=== PATIENT | female | born 1955 | race Caucasian/White ===

== ENCOUNTER 2018-02-14 21:34 | Inpatient (IN) | payer MEDICARE, OTHER, SELFPAY ==
[~2018-02-14] VITALS: Ht 167.6 cm; Wt 127.0 kg
[2018-02-14] MEDS ORDERED: METHOCARBAMOL 750 MG TABLET ONE (22:25)
[2018-02-14 22:30] LABS: BASOPHILS # (AUTO) 0.02 x10^3/uL (0-0.1); BASOPHILS % (AUTO) 0 % (0-1); EOSINOPHILS # (AUTO) 0.37 x10^3/uL (0-0.4); EOSINOPHILS % (AUTO) 5 % (1-7); LYMPHOCYTES # (AUTO) 1.03 x10^3/uL (1-3.4); LYMPHOCYTES % (AUTO) 13 % (22-44); MD NO; MEAN CORPUSCULAR HEMOGLOBIN 31.9 pg (27.0-34.8); MEAN CORPUSCULAR HGB CONC 33.9 g/dL (32.4-35.8); MEAN CORPUSCULAR VOLUME 94.2 fL (80-100); MEAN PLATELET VOLUME 8.2 fL (7.4-10.4); MONOCYTES # (AUTO) 0.44 x10^3/uL (0.2-0.8); MONOCYTES % (AUTO) 6 % (2-9); NEUTROPHILS # (AUTO) 5.95 x10^3/uL (1.8-6.8); NEUTROPHILS % (AUTO) 76 % (42-75); PLATELET COUNT 246 x10^3/uL (130-400); RED BLOOD COUNT 3.55 x10^6/uL (3.82-5.3)
[2018-02-14] MEDS ORDERED: SODIUM CHLORIDE FLUSH 10ML SYR IVF ONE (22:30)
[2018-02-14] MEDS ORDERED: METHOCARBAMOL 750 MG TABLET PO ONE (22:30)
[2018-02-14 22:42] LABS: ALBUMIN 2.8 g/dL (3.4-5.0); ANION GAP 7 mmol/L (5-15); CALCIUM 8.3 mg/dL (8.5-10.1); CHLORIDE 110 mmol/L (98-107)
[2018-02-14 22:46] LABS: TROPONIN I < 0.015 ng/mL (0.000-0.045)
[2018-02-14 22:52] LABS: CREATININE 2.95 mg/dL (0.55-1.02)
[2018-02-14] MEDS ORDERED: hydrALAzine 20 MG/ML, 1ML ONE (23:23)
[2018-02-14] MEDS ORDERED: hydrALAzine 20 MG/ML, 1ML IV ONE (23:30)
[2018-02-14] MEDS ORDERED: SODIUM CHLORIDE 0.9% 1,000ML IVBOLUS ONE (23:30)
[2018-02-14] MEDS ORDERED: ASPI-621 PO (23:38)
[2018-02-14] MEDS ORDERED: LOSA50TA6 PO (23:38)
[2018-02-14] MEDS ORDERED: METO50TA4 PO (23:38)
[2018-02-14] MEDS ORDERED: CLON0.1T PO (23:38)
[2018-02-14] MEDS ORDERED: INSU100I28 SQ (23:38)
[2018-02-14] MEDS ORDERED: INSU100V11 SQ (23:38)
[2018-02-14] MEDS ORDERED: DOCU100C33 PO (23:38)
[2018-02-14] MEDS ORDERED: HYDR100T25 PO (23:38)
[2018-02-14] MEDS ORDERED: LIRA0.6P SC (23:38)
[2018-02-14] MEDS ORDERED: OMEP-110 PO (23:38)
[2018-02-14] MEDS ORDERED: OXYC10TA6 PO (23:41)
[2018-02-14] MEDS ORDERED: LINA5TAB PO (23:41)
[2018-02-14] MEDS ORDERED: SODIUM CHLORIDE 0.9% 1,000 ML IV SCH (23:47)
[2018-02-15] VITALS (10 sets, daily range): BP systolic 132–208; BP diastolic 60–79
[2018-02-15] MEDS ORDERED: BISACODYL 10 MG SUPP PR PRN
[2018-02-15] MEDS ORDERED: GLUCAGON 1 MG IM PRN
[2018-02-15] MEDS ORDERED: DOCUSATE 100 MG CAPSULE PO PRN
[2018-02-15] MEDS ORDERED: POLYETHYLENE GLYCOL 17 GM PACKET PO PRN
[2018-02-15] MEDS ORDERED: LABETALOL 5MG/ML, 20ML IVPush PRN
[2018-02-15] MEDS ORDERED: DEXTROSE 4 GM TAB.CHEW PO PRN
[2018-02-15] MEDS ORDERED: DEXTROSE 50%, 50ML SYRINGE IVPush PRN
[2018-02-15] MEDS: HEPARIN 5,000 UNITS/ML, 1ML SQ SCH ×4 (01:14→22:29)
[2018-02-15] MEDS: hydrALAzine 20 MG/ML, 1ML IVPush PRN ×2 (03:01→22:29)
[2018-02-15 05:46] LABS: CALCIUM 8.1 mg/dL (8.5-10.1); CHLORIDE 112 mmol/L (98-107)
[2018-02-15 05:48] LABS: BASOPHILS # (AUTO) 0.06 x10^3/uL (0-0.1); BASOPHILS % (AUTO) 1 % (0-1); EOSINOPHILS # (AUTO) 0.27 x10^3/uL (0-0.4); EOSINOPHILS % (AUTO) 5 % (1-7); LYMPHOCYTES # (AUTO) 1.19 x10^3/uL (1-3.4); LYMPHOCYTES % (AUTO) 20 % (22-44); MD NO; MEAN CORPUSCULAR HEMOGLOBIN 31.8 pg (27.0-34.8); MEAN CORPUSCULAR HGB CONC 34.1 g/dL (32.4-35.8); MEAN CORPUSCULAR VOLUME 93.4 fL (80-100); MEAN PLATELET VOLUME 8.6 fL (7.4-10.4); MONOCYTES # (AUTO) 0.41 x10^3/uL (0.2-0.8); MONOCYTES % (AUTO) 7 % (2-9); NEUTROPHILS # (AUTO) 3.99 x10^3/uL (1.8-6.8); NEUTROPHILS % (AUTO) 67 % (42-75); PLATELET COUNT 208 x10^3/uL (130-400); RED BLOOD COUNT 3.16 x10^6/uL (3.82-5.3); RED CELL DISTRIBUTION WIDTH 13.3 % (9.6-15.2)
[2018-02-15 05:49] LABS: ANION GAP 8 mmol/L (5-15); CREATININE 2.65 mg/dL (0.55-1.02)
[2018-02-15 05:54] LABS: % IRON SATURATION 21 % (20-55); IRON LEVEL 48 mcg/dL (50-170); TOTAL IRON BINDING CAPACITY 231 mcg/dL (250-450); TRANSFERRIN 175 mg/dL (200-360); TROPONIN I < 0.015 ng/mL (0.000-0.045)
[2018-02-15] MEDS: INSULIN LISPRO 100 UNITS/ML, PEN SQ-INSULIN SCH ×4 (07:00→21:58)
[2018-02-15 07:54] LABS: MICROSCOPIC AUTO
[2018-02-15 07:56] LABS: CULTURE INDICATED? NO
[2018-02-15 08:03] LABS: CREATININE,URINE RANDOM 60.4 mg/dL
[2018-02-15] MEDS: LINAGLIPTIN 5 MG TAB PO SCH (08:34)
[2018-02-15] MEDS: ASPIRIN 81 MG TABLET EC PO SCH (08:34)
[2018-02-15] MEDS: SODIUM CHLORIDE FLUSH 10ML SYR IVF SCH ×2 (08:35→19:50)
[2018-02-15] MEDS: OXYcodone IR 5MG TABLET PO PRN ×2 (08:36→16:04)
[2018-02-15] MEDS: DOCUSATE 100 MG CAPSULE PO SCH (08:36)
[2018-02-15] MEDS: LOSARTAN 50MG TABLET PO SCH ×2 (08:40→19:55)
[2018-02-15] MEDS: LIRAGLUTIDE 1.8 UNIT SC SCH ×2 (08:42→10:14)
[2018-02-15] MEDS ORDERED: METOPROLOL SUCCINATE 50 MG TAB.ER.24H PO SCH (09:00)
[2018-02-15] MEDS ORDERED: INSULIN DETEMIR 100 UNITS/ML, PEN SQ-INSULIN SCH (09:00)
[2018-02-15] MEDS: INSULIN GLARGINE 100 UNITS/ML, PEN SQ-INSULIN SCH ×2 (09:25→21:57)
[2018-02-15 10:31] LABS: TROPONIN I < 0.015 ng/mL (0.000-0.045)
[2018-02-15] MEDS: ACETAMINOPHEN 325 MG TABLET PO PRN ×2 (12:09→17:47)
[2018-02-16] VITALS (13 sets, daily range): BP systolic 158–225; BP diastolic 68–88
[2018-02-16] MEDS ORDERED: MAGNESIUM SULFATE PMX 2GM/50ML 50 ML IV ONE (02:00)
[2018-02-16] MEDS: hydrALAzine 20 MG/ML, 1ML IVPush PRN ×3 (02:18→22:25)
[2018-02-16] MEDS ORDERED: LORazepam 2 MG/ML, 1ML IVPush ONE (03:00)
[2018-02-16] MEDS ORDERED: GLUCAGON 1 MG IV ONE (03:30)
[2018-02-16] MEDS: SODIUM CHLORIDE 0.9% IV SCH ×4 (03:43→09:08)
[2018-02-16] MEDS: GLUCAGON IV SCH ×4 (03:43→09:08)
[2018-02-16] MEDS: ONDANSETRON 2MG/ML, 2ML IVPush PRN (04:00)
[2018-02-16] MEDS: ACETAMINOPHEN 325 MG TABLET PO PRN ×3 (04:36→19:16)
[2018-02-16 04:43] LABS: ANION GAP 9 mmol/L (5-15); CALCIUM 8.6 mg/dL (8.5-10.1); CHLORIDE 108 mmol/L (98-107); CREATININE 2.46 mg/dL (0.55-1.02)
[2018-02-16] MEDS: LOSARTAN 50MG TABLET PO SCH ×2 (07:43→19:16)
[2018-02-16] MEDS: INSULIN LISPRO 100 UNITS/ML, PEN SQ-INSULIN SCH ×4 (07:57→21:02)
[2018-02-16] MEDS: SODIUM CHLORIDE FLUSH 10ML SYR IVF SCH ×2 (09:00→21:12)
[2018-02-16] MEDS: HEPARIN 5,000 UNITS/ML, 1ML SQ SCH ×2 (10:14→16:58)
[2018-02-16] MEDS: DOCUSATE 100 MG CAPSULE PO SCH (10:14)
[2018-02-16] MEDS: ASPIRIN 81 MG TABLET EC PO SCH (10:14)
[2018-02-16] MEDS: INSULIN GLARGINE 100 UNITS/ML, PEN SQ-INSULIN SCH ×2 (10:15→21:02)
[2018-02-16] MEDS: LINAGLIPTIN 5 MG TAB PO SCH (10:15)
[2018-02-16] MEDS: OXYcodone IR 5MG TABLET PO PRN (19:16)
[2018-02-17] VITALS (11 sets, daily range): BP systolic 166–212; BP diastolic 65–84
[2018-02-17] MEDS: hydrALAzine 20 MG/ML, 1ML IVPush PRN ×3 (04:35→19:48)
[2018-02-17] MEDS: ACETAMINOPHEN 325 MG TABLET PO PRN ×2 (04:41→19:51)
[2018-02-17] MEDS: ONDANSETRON 2MG/ML, 2ML IVPush PRN ×2 (05:26→13:28)
[2018-02-17] MEDS: HEPARIN 5,000 UNITS/ML, 1ML SQ SCH ×3 (05:26→22:05)
[2018-02-17] MEDS: METOPROLOL SUCCINATE 50 MG TAB.ER.24H HOMEMEDPO SCH (05:27)
[2018-02-17 05:38] LABS: BASOPHILS # (AUTO) 0.03 x10^3/uL (0-0.1); BASOPHILS % (AUTO) 1 % (0-1); EOSINOPHILS # (AUTO) 0.21 x10^3/uL (0-0.4); EOSINOPHILS % (AUTO) 4 % (1-7); LYMPHOCYTES # (AUTO) 0.79 x10^3/uL (1-3.4); LYMPHOCYTES % (AUTO) 15 % (22-44); MD NO; MEAN CORPUSCULAR HEMOGLOBIN 32.2 pg (27.0-34.8); MEAN CORPUSCULAR VOLUME 94.5 fL (80-100); MEAN PLATELET VOLUME 8.3 fL (7.4-10.4); MONOCYTES # (AUTO) 0.39 x10^3/uL (0.2-0.8); MONOCYTES % (AUTO) 7 % (2-9); NEUTROPHILS % (AUTO) 74 % (42-75); PLATELET COUNT 235 x10^3/uL (130-400); RED BLOOD COUNT 3.46 x10^6/uL (3.82-5.3)
[2018-02-17 05:42] LABS: ANION GAP 8 mmol/L (5-15); CALCIUM 8.9 mg/dL (8.5-10.1); CHLORIDE 111 mmol/L (98-107); CREATININE 2.44 mg/dL (0.55-1.02)
[2018-02-17] MEDS: INSULIN LISPRO 100 UNITS/ML, PEN SQ-INSULIN SCH ×4 (07:00→22:07)
[2018-02-17] MEDS: LOSARTAN 50MG TABLET PO SCH ×2 (07:40→22:04)
[2018-02-17] MEDS: INSULIN GLARGINE 100 UNITS/ML, PEN SQ-INSULIN SCH ×2 (09:00→22:08)
[2018-02-17] MEDS: SODIUM CHLORIDE FLUSH 10ML SYR IVF SCH ×2 (09:00→22:07)
[2018-02-17] MEDS: DOCUSATE 100 MG CAPSULE PO SCH (09:57)
[2018-02-17] MEDS: ASPIRIN 81 MG TABLET EC PO SCH (09:57)
[2018-02-17] MEDS: LINAGLIPTIN 5 MG TAB PO SCH (09:58)
[2018-02-17] MEDS: ISOSORBIDE MONONITRATE ER 60 MG TABLET PO SCH (10:09)
[2018-02-17] MEDS: AMLODIPINE 5 MG TABLET PO SCH (12:19)
[2018-02-17] MEDS ORDERED: FUROSEMIDE 20 MG/2 ML IV ONE (15:00)
[2018-02-17] MEDS ORDERED: LABETALOL 5MG/ML, 20ML IVPush PRN (17:30)
[2018-02-17] MEDS ORDERED: hydrALAzine 20 MG/ML, 1ML ONE (19:43)
[2018-02-17] MEDS: OXYcodone IR 5MG TABLET PO PRN (19:51)
[2018-02-18 02:00] VITALS: BP 187/82
[2018-02-18] MEDS: hydrALAzine 20 MG/ML, 1ML IVPush PRN (02:20)
[2018-02-18 04:30] VITALS: BP 175/76
[2018-02-18] MEDS: OXYcodone IR 5MG TABLET PO PRN ×2 (04:37→08:25)
[2018-02-18] MEDS: ACETAMINOPHEN 325 MG TABLET PO PRN ×2 (04:38→12:59)
[2018-02-18] MEDS: METOPROLOL SUCCINATE 50 MG TAB.ER.24H HOMEMEDPO SCH (04:54)
[2018-02-18] MEDS: ONDANSETRON 2MG/ML, 2ML IVPush PRN (04:57)
[2018-02-18 05:32] LABS: CALCIUM 8.7 mg/dL (8.5-10.1); CHLORIDE 109 mmol/L (98-107)
[2018-02-18 05:36] LABS: ANION GAP 10 mmol/L (5-15)
[2018-02-18] MEDS: INSULIN LISPRO 100 UNITS/ML, PEN SQ-INSULIN SCH ×2 (07:00→12:24)
[2018-02-18 08:05] VITALS: BP 198/72
[2018-02-18] MEDS: HEPARIN 5,000 UNITS/ML, 1ML SQ SCH (08:25)
[2018-02-18] MEDS: LOSARTAN 50MG TABLET PO SCH (08:26)
[2018-02-18] MEDS: ASPIRIN 81 MG TABLET EC PO SCH (08:26)
[2018-02-18] MEDS: DOCUSATE 100 MG CAPSULE PO SCH (08:26)
[2018-02-18] MEDS: AMLODIPINE 5 MG TABLET PO SCH (08:26)
[2018-02-18] MEDS: LINAGLIPTIN 5 MG TAB PO SCH (08:26)
[2018-02-18] MEDS: INSULIN GLARGINE 100 UNITS/ML, PEN SQ-INSULIN SCH (08:27)
[2018-02-18] MEDS: SODIUM CHLORIDE FLUSH 10ML SYR IVF SCH (08:28)
[2018-02-18] MEDS: ISOSORBIDE MONONITRATE ER 60 MG TABLET PO SCH (08:45)
[2018-02-18] MEDS ORDERED: ISOSORBIDE MONONITRATE ER 60 MG TABLET PO ONE (10:00)
[2018-02-18] MEDS ORDERED: CARVEDILOL 12.5 MG TABLET PO SCH (10:00)
[2018-02-18 13:11] VITALS: BP 145/70
[2018-02-18] MEDS ORDERED: CARV-39 PO (13:25)
[2018-02-18] MEDS ORDERED: ISOS60TA36 PO (13:25)
[2018-02-18] MEDS ORDERED: AMLO5TAB2 PO (13:25)
[2018-02-19] MEDS ORDERED: ISOSORBIDE MONONITRATE ER 60 MG TABLET PO SCH (09:00)
== END 2018-02-18 15:10 | disposition home or self-care (01) | DRG 682 ==
LOC: ED 23:00 → EDIP 23:51 → 4EST 02-15 00:30 → 5SO 02-16 00:57 → DCLOUNGE 02-18 15:04
PROVIDERS: ADMIT Internal Medicine; ATTEND Internal Medicine
DX: N17.0 Acute kidney failure with tubular necrosis (principal); G93.40 Encephalopathy, unspecified; I16.9 Hypertensive crisis, unspecified; E44.0 Moderate protein-calorie malnutrition; Z68.42 Body mass index [BMI] 45.0-49.9, adult; D63.8 Anemia in other chronic diseases classified elsewhere; E11.22 Type 2 diabetes mellitus with diabetic chronic kidney disease; R07.89 Other chest pain; E11.65 Type 2 diabetes mellitus with hyperglycemia; I13.10 Hypertensive heart and chronic kidney disease without heart failure, with stage 1 through stage 4 chronic kidney disease, or unspecified chronic kidney disease; N18.9 Chronic kidney disease, unspecified; Z66 Do not resuscitate; Z79.4 Long term (current) use of insulin; Z82.49 Family history of ischemic heart disease and other diseases of the circulatory system; Z83.3 Family history of diabetes mellitus; Z80.9 Family history of malignant neoplasm, unspecified; R51 Headache
CPT/HCPCS: 36415; 70450; 70551; 71045; 76770; 80048; 81001; 82040; 82436; 82570; 82728; 82962; 83036; 83540; 83550; 83735; 84133; 84300; 84466; 84484; 85025; 93005; 93306; 93880; 93975; 99291; J1644; J2405; J0360; J1610; J1815; J1940; J3475; J7030

== ENCOUNTER 2018-11-23 06:07 | Day surgery (SDC) | payer MEDICARE, OTHER ==
[2018-11-17 07:09] VITALS: BP 183/96
[~2018-11-23] VITALS: Ht 167.6 cm; Wt 120.0 kg
[~2018-11-23 06:07] MED LIST: AMLO-150 PO; ASPI81TA45 PO; CARV-39 PO; CLON0.1T22 PO; DOCU100C33 PO; HYDR100T25 PO; INSU100I28 SQ; INSU100V11 SQ; ISOS60TA36 PO; LINA5TAB PO; LIRA0.6P SC; LOSA50TA14 PO; METO50TA4 PO; OMEP-110 PO; OXYC10TA6 PO
[2018-11-23 06:57] VITALS: BP 158/72
[2018-11-23 07:31] LABS: INTERNATIONAL NORMALIZED RATIO 1.01 (0.93-1.1); PROTHROMBIN TIME 10.6 Seconds (9.6-11.5)
[2018-11-23] MEDS ORDERED: FENTANYL PF 100 MCG/2ML ONE (09:05)
[2018-11-23] MEDS ORDERED: MIDAZOLAM 1 MG/ML, 5ML ONE (09:06)
[2018-11-23] MEDS ORDERED: NALOXONE 1 MG/ML, 2ML ONE (09:06)
[2018-11-23] MEDS ORDERED: FLUMAZENIL 0.1 MG/1 ML, 5ML ONE (09:06)
[2018-11-23] MEDS ORDERED: LIDOCAINE-MPF 1%, 5ML ONE (09:11)
== END 2018-11-23 12:05 | disposition home or self-care (01) ==
LOC: OUT 06:07
PROVIDERS: ATTEND Internal Medicine Nephrology
DX: N17.9 Acute kidney failure, unspecified (principal); E11.22 Type 2 diabetes mellitus with diabetic chronic kidney disease; I12.9 Hypertensive chronic kidney disease with stage 1 through stage 4 chronic kidney disease, or unspecified chronic kidney disease; N18.9 Chronic kidney disease, unspecified; Z88.1 Allergy status to other antibiotic agents; Z72.89 Other problems related to lifestyle; Z79.82 Long term (current) use of aspirin; Z79.01 Long term (current) use of anticoagulants; Z79.84 Long term (current) use of oral hypoglycemic drugs
CPT/HCPCS: 36415; 50200; 77012; 82962; 85610; 88300; 99156; J2250; J3010; 99157; J2310